=== PATIENT | male | born 1985 | race African-American/Black ===

== ENCOUNTER 2021-08-04 11:16 | Emergency (ER) | payer MEDICAID, SELFPAY ==
[~2021-08-04] VITALS: Ht 188 cm; Wt 90.0 kg
[2021-08-04 13:03] VITALS: BP 149/94
== END 2021-08-04 15:36 | disposition home or self-care (01) ==
LOC: EMS 11:16
DX: F20.9 Schizophrenia, unspecified (principal); M79.671 Pain in right foot; G89.29 Other chronic pain
CPT/HCPCS: 99284; Z7502

== ENCOUNTER 2025-02-06 21:38 | Inpatient (IN) | payer MEDICAID ==
[~2025-02-06] VITALS: Ht 182.9 cm; Wt 105.0 kg
[2025-02-06] MEDS: LORazepam 2 MG/ML VIAL IM ONE (23:50)
[2025-02-06] MEDS: DiphenhydrAMINE HCL 50 MG/ML VIAL IM ONE (23:50)
[2025-02-06] MEDS: HALOPERIDOL LACTATE 5 MG/ML VIAL IM ONE (23:51)
[2025-02-07] MEDS ORDERED: ZOLPIDEM TARTRATE 10 MG TABLET PO PRN (00:30)
[2025-02-07] MEDS ORDERED: LORazepam 2 MG TABLET PO PRN (00:30)
[2025-02-07] MEDS ORDERED: HALOPERIDOL 5 MG TABLET PO PRN (00:30)
[2025-02-07 02:26] LABS: BASOPHILS % (AUTO) 0.9 % (0.0-2.0); EOSINOPHILS % (AUTO) 0.4 % (1.0-6.0); HEMATOCRIT 35.8 % (41-53); HEMOGLOBIN 12.3 g/dL (13.5-17.5); LYMPHOCYTES # (AUTO) 1.6 K/uL (1.0-4.8); LYMPHOCYTES % (AUTO) 23.7 % (22.0-44.0); MEAN CORPUSCULAR HEMOGLOBIN 33.2 pg (26.0-34.0); MEAN CORPUSCULAR HGB CONC 34.4 G/dL (31.0-37.0); MEAN CORPUSCULAR VOLUME 97 fL (80-100); MONOCYTES # (AUTO) 0.8 K/uL (0.1-1.0); NEUTROPHILS # (AUTO) 4.4 K/uL (1.8-7.7); PLATELET COUNT (AUTO) 381 K/uL (150-450); RED BLOOD CELL COUNT(AUTO) 3.71 MIL/uL (4.50-5.90); RED CELL DISTRIBUTION WIDTH 13.5 % (11.5-14.5); WHITE BLOOD COUNT (AUTO) 6.9 K/uL (4.5-11.0)
[2025-02-07 02:28] LABS: COVID AG,FIA SOURCE NASAL SWAB
[2025-02-07 02:34] LABS: SARS-COV2 (COVID) ANTIGEN,FIA Negative (Negative)
[2025-02-07 02:36] LABS: ALBUMIN 3.3 g/dL (3.4-5.0); BILIRUBIN,DIRECT 0.2 mg/dL (0.00-0.20); BILIRUBIN,TOTAL 0.5 mg/dL (0.1-1.0); TOTAL PROTEIN, SERUM 7.3 g/dL (6.4-8.2)
[2025-02-07 02:39] LABS: ANION GAP 6 mmol/L (8-16); CARBON DIOXIDE 30 mmol/L (22-29); CHLORIDE 103 mmol/L (98-107); CREATININE 1.12 mg/dL (0.60-1.30); GLOMERULAR FILTR. RATE CALC > 60 mL/min (>60); GLUCOSE,RANDOM 110 mg/dL (70-110); POTASSIUM 4.1 mmol/L (3.5-5.1); SODIUM SERUM 139 mmol/L (136-145); UREA NITROGEN, BLOOD 16 mg/dL (7-18)
[2025-02-07 05:34] VITALS: BP 142/85; PULSE 74; RESP 17; TEMP 97.3; O2SAT 100
[2025-02-07 05:35] VITALS: BP 142/85; PULSE 74; RESP 17; TEMP 97.3; O2SAT 100
[2025-02-07 05:37] VITALS: BP 142/85; PULSE 74; RESP 17; TEMP 97.3; O2SAT 100
[2025-02-07] MEDS ORDERED: LOPERAMIDE HCL 2 MG CAPSULE PO PRN (06:15)
[2025-02-07] MEDS ORDERED: GuaiFENesin/D-METHORPHAN [SUGAR-FREE] 200-20MG/10 ML SYRUP UDCUP PO PRN (06:15)
[2025-02-07] MEDS ORDERED: DOCUSATE SODIUM 100 MG CAPSULE PO PRN (06:15)
[2025-02-07] MEDS ORDERED: PETROLATUM,WHITE 28 GM JELLY TP PRN (06:15)
[2025-02-07] MEDS ORDERED: ONDANSETRON 4 MG TABLET PO PRN (06:15)
[2025-02-07] MEDS ORDERED: MAG HYDROX/ALUMINUM HYD/SIMETH ES 30 ML SUSPENSION UDCUP PO PRN (06:15)
[2025-02-07] MEDS ORDERED: ACETAMINOPHEN 325 MG TABLET PO PRN (06:15)
[2025-02-07] MEDS ORDERED: MAGNESIUM HYDROXIDE SUSPENSION 30 ML UDCUP PO PRN (06:15)
[2025-02-07] MEDS ORDERED: ALBUTEROL SULFATE HFA 90 MCG/PUFF 8 GM INHALER IH PRN (06:15)
[2025-02-07] MEDS ORDERED: CloNIDine HCL 0.1 MG TABLET PO PRN (06:15)
[2025-02-07] MEDS ORDERED: NICOTINE 14 MG/24 HOUR PATCH TD PRN (06:15)
[2025-02-07] MEDS ORDERED: IBUPROFEN 400 MG TABLET PO PRN (06:15)
[2025-02-07] MEDS ORDERED: PNEUMOCOCCAL VACCINE POLYVALENT 0.5 ML SYRINGE [PPSV23] IM. ONE (08:30)
[2025-02-07] MEDS ORDERED: INFLUENZA VIRUS VACCINE TVS (6MO+) 2024-25/PF 45 MCG/0.5 ML SYRINGE IM. ONE (08:30)
[2025-02-07 08:45] VITALS: RESP 18
[2025-02-07 09:39] VITALS: RESP 18
[2025-02-08 08:14] VITALS: BP 130/82; PULSE 83; RESP 18; TEMP 97.3; O2SAT 99
[2025-02-08 20:30] VITALS: BP 126/86; PULSE 98; RESP 18; TEMP 97.2; O2SAT 98
[2025-02-09 12:28] VITALS: BP 132/80; PULSE 74; RESP 15; TEMP 97.4; O2SAT 100
== END 2025-02-09 18:05 | disposition left against medical advice (07) | DRG 751 ==
LOC: EMS 21:42 → B3A 02-07 04:37
PROVIDERS: ADMIT Psychiatry & Neurology Psychiatry; ATTEND Psychiatry & Neurology Psychiatry
PROC: GZ56ZZZ Individual Psychotherapy, Supportive (ICD-10-PCS; principal; 2025-02-07)
DX: F29 Unspecified psychosis not due to a substance or known physiological condition (principal); D64.9 Anemia, unspecified; E66.9 Obesity, unspecified; F10.90 Alcohol use, unspecified, uncomplicated; K59.00 Constipation, unspecified; Z20.822 Contact with and (suspected) exposure to COVID-19; Z72.0 Tobacco use; F41.9 Anxiety disorder, unspecified; G47.00 Insomnia, unspecified; F12.90 Cannabis use, unspecified, uncomplicated; Z68.31 Body mass index [BMI] 31.0-31.9, adult; Z53.29 Procedure and treatment not carried out because of patient's decision for other reasons
CPT/HCPCS: 80048; 80076; 82140; 85025; 93005; 96372; 99291; G0480; J1200; J1630; J2060